=== PATIENT | female | born 1970 | race Caucasian/White ===

== ENCOUNTER 2016-08-29 07:12 | Emergency (ER) | payer BC ==
[~2016-08-29] VITALS: Ht 160 cm; Wt 64.8 kg
[2016-08-29 07:52] LABS: HEMATOCRIT 37.6 % (36.0-46.0); MCH 30.2 PG (29.0-34.0); MCHC 33.8 G/DL (30.0-36.0); MCV 89.3 FL (83-99); MEAN PLAT.VOLUME 9.3 uM^3 (9.5-12.4); PLATELET COUNT 298 K/uL (156-360); RBC DIS.WIDTH-CV 12.3 % (11.8-14.6); RBC DIS.WIDTH-SD 39.9 % (39-53); RED BLOOD COUNT 4.21 M/uL (3.80-5.20); WHITE BLOOD COUNT 8.9 K/uL (4.1-10.2)
[2016-08-29 08:22] LABS: ANION GAP 13 MEQ/L (2-14); CHLORIDE 105 MEQ/L (99-109); POTASSIUM 4.3 MEQ/L (3.7-5.4); SAMPLE HEMOLYSIS CHECK 0; SAMPLE ICTERIC CHECK 0; SAMPLE LIPEMIA CHECK 0; SODIUM 138 MEQ/L (136-147)
[2016-08-29 08:28] LABS: GFR ESTIMATE (CALCULATED) > 59 mL/min/; GLUCOSE 172 mg/dL (70-99); UREA NITROGEN (BUN) 17 mg/dL (9-23)
[2016-08-29 08:54] LABS: PROTHROMBIN TIME 10.5 (9.2-11.2); PTT 21.1 (25-32)
[2016-08-29 09:43] LABS: ADD MIUA? YES; BILIRUBIN NEGATIVE; BLOOD MODERATE; COLOR YELLOW ((YELLOW)); GLUCOSE (STRIP) NEGATIVE; KETONES 20; LEUKOCYTES NEGATIVE; NITRITE NEGATIVE; PROTEIN (STRIP) 30; SPECIFIC GRAVITY 1.014 (1.000-1.030); UROBILINOGEN 0.2 MG/DL (0.2-1.0)
[2016-08-29 09:55] LABS: BACTERIA NONE SEEN /HPF; EPITHELIAL CELLS RARE /HPF; GRANULAR CASTS 0-5 /LPF; MUCUS TRACE /LPF; UCUL ADDED? NO; WHITE BLOOD CELLS 0-5 /HPF (0-5)
[2016-08-29 12:42] VITALS: BP 127/73
== END 2016-08-29 12:30 | disposition short-term general hospital (02) ==
LOC: EME 07:12
PROVIDERS: Emergency Medicine
DX: I60.9 Nontraumatic subarachnoid hemorrhage, unspecified (principal); G40.909 Epilepsy, unspecified, not intractable, without status epilepticus; G43.909 Migraine, unspecified, not intractable, without status migrainosus
CPT/HCPCS: 70450; 80048; 81003; 84702; 85027; 85610; 85730; 86900; 86901; 99281; 99285; J1165; J2405; J2765; J3010; J7030; J7050

== ENCOUNTER 2016-09-10 18:34 | Emergency (ER) | payer BC ==
[~2016-09-10] VITALS: Ht 152.4 cm; Wt 63.5 kg
[2016-09-10 20:16] LABS: BASOPHIL COUNT 0.1 K/uL (0-0.1); EOSINOPHIL COUNT 0.2 K/uL (0-0.3); HEMATOCRIT 41.4 % (36.0-46.0); IMMATURE GRANULOCYTE (%) 0.3 % (0.0-0.7); INSTRUMENT ABS NEUTROPHIL CT 3.9 K/uL; LYMPHOCYTE COUNT 2.2 K/uL (1.0-2.8); MCHC 33.3 G/DL (30.0-36.0); MEAN PLAT.VOLUME 8.9 uM^3 (9.5-12.4); MONOCYTE (%) 9.7 % (3-12); MONOCYTE COUNT 0.7 K/uL (0-0.8); NEUTROPHIL (%) 55.3 % (45-76); NEUTROPHIL COUNT 3.9 K/uL (1.8-6.4); PLATELET COUNT 317 K/uL (156-360); RBC DIS.WIDTH-CV 12.5 % (11.8-14.6); RBC DIS.WIDTH-SD 41.4 % (39-53); WHITE BLOOD COUNT 7.1 K/uL (4.1-10.2)
[2016-09-10 21:21] LABS: CHLORIDE 107 mEq/L (99-109); SODIUM 141 mEq/L (136-147)
[2016-09-10 21:23] LABS: GLUCOSE 89 mg/dL (70-99)
[2016-09-10 21:24] LABS: ANION GAP 14 MEQ/L (2-14)
[2016-09-10 21:26] LABS: GFR ESTIMATE (CALCULATED) > 59 mL/min/
[2016-09-10 21:27] LABS: UREA NITROGEN (BUN) 13 mg/dL (9-23)
[2016-09-10] MEDS ORDERED: FIORICET 50-301 EACH PO (22:23)
[2016-09-10 22:34] VITALS: BP 109/69
== END 2016-09-10 22:47 | disposition home or self-care (01) ==
LOC: EME 18:34
PROVIDERS: Emergency Medicine
DX: R51 Headache (principal); G43.909 Migraine, unspecified, not intractable, without status migrainosus
CPT/HCPCS: 70450; 80048; 85025; 85610; 99281; 99285; J1200; J1630; J2765